=== PATIENT | male | born 1990 | race Two or more races ===

== ENCOUNTER 2017-06-01 12:56 | Emergency (ER) | payer OTHER ==
[2017-06-01] MEDS ORDERED: NS 0.9% 1000 ML* 1,000 ML IV ONE ×3 (13:42→17:38)
[2017-06-01] MEDS ORDERED: Ondansetron INJ* 2 MG/ML VIAL IV ONE (13:43)
[2017-06-01 15:38] LABS: ABS Basophils 0 10^3/ul (0-0.2); ABS Eosinophils 0 10^3/ul (0-0.6); ABS Lymphocytes 1.7 10^3/ul (1.0-4.8); ABS Monocytes 0.9 10^3/ul (0-0.8); ABS Nucleated RBC 0 10^3/ul; Eosinophil % 0.4 % (0-6); Hematocrit 49 % (42-52); Hemoglobin 15.7 g/dl (14.0-18.0); Lymphocyte % 15.6 % (25-47); Mean Corpuscular HGB Conc 33 g/dl (31-36); Mean Corpuscular Hemoglobin 26 pg (27-31); Mean Corpuscular Volume 79 fL (80-94); Mean Platelet Volume 10 um3 (7.4-10.4); Nucleated Red Blood Cells % 0.1; Platelet Count 214 10^3/ul (150-450); Red Blood Count 6.14 10^6/ul (4.0-5.4); Red Cell Distribution Width 15 % (10.5-15); White Blood Count 10.6 10^3/ul (3.5-10.8)
[2017-06-01 15:46] LABS: EGFR Non-African American 92.8 (>60)
[2017-06-01] MEDS ORDERED: Insulin REGULAR(*) 1 UNITS UNIT ONE (17:16)
[2017-06-01] MEDS ORDERED: Insulin REGULAR(*) 1 UNITS UNIT SUBCUT ONE (17:22)
[2017-06-01] MEDS ORDERED: Insulin GLARGINE(*) 1 UNITS UNIT ONE (18:57)
[2017-06-01] MEDS ORDERED: Insulin GLARGINE(*) 1 UNITS UNIT SUBCUT ONE (19:31)
[2017-06-01 19:48] VITALS: BP 162/80
--- NOTE | 2017-06-10 19:44 | ED ---
Loyd Salvador Stephanie, scribed for Marlon Araiza MD on 06/01/17 at 1345 . HPI Diabetic - HPI Summary HPI Summary: The pt is a 26 y/o M presenting to the ED with c/o N/V that began about 1 week ago. Symptoms include heartburn, increased urination, SOB and dry mouth. The pt denies cough. The pt was recently diagnosed with diabetes 5 days ago and is here for evaluation of hyperglycemia. BG was in 450s. The pt received 12 units of insulin today at 11:00. - History Of Current Complaint Chief Complaint: EDDiabeticProb Time Seen by Provider: 06/01/17 13:41 Hx Obtained From: Patient Onset/Duration: Gradual Onset, Lasting Days - 5, Still Present Timing: Constant Severity Currently: Mild Aggravating: Medication Change, Recent Illness - diabetes and HTN dx Associated Signs & Symptoms: Nausea, Shortness of Breath, Vomiting - Allergies/Home Medications Allergies/Adverse Reactions: Allergies Allergy/AdvReac Type Severity Reaction Status Date / Time No Known Allergies Allergy Verified 06/01/17 14:09 PMH/Surg Hx/FS Hx/Imm Hx Endocrine/Hematology History: Reports: Hx Diabetes Cardiovascular History: Reports: Hx Hypertension - Surgical History Surgery Procedure, Year, and Place: NONE Infectious Disease History: No Infectious Disease History: Denies: Traveled Outside the [place] in Last 30 Days - Family History Known Family History: Positive: Cardiac Disease - Social History Occupation: Unemployed Lives: [facility] Hx Substance Use: No Substance Use Type: Reports: None Hx Tobacco Use: No Review of Systems Positive: Other - dry mouth Positive: Other - heartburn Positive: Shortness Of Breath. Negative: Cough Positive: Vomiting, Nausea Positive: frequency - increased All Other Systems Reviewed And Are Negative: Yes Physical Exam - Summary Physical Exam Summary: Appearance: Well-appearing, morbidly obese Skin: Warm, Dry, No rash Eyes: Normal, PERRL, EOMI, sclera anicteric ENT: large tonsils, no thrush Neck: Supple, nontender Respiratory: Clear to auscultation Cardiovascular: S1, S2, no murmur, no rub, no gallop Abdomen: Soft, nontender, no organomegaly Bowel sounds: Present Musculoskeletal: Normal, Strength/ROM Intact, no edema, pulses symmetrical Neurological: Normal, A&Ox3, cranial nerves II-XII WNL, follows commands, gait not tested, sensation intact to pin and light touch Psychiatric: affect normal, behavior appropriate, dressed appropriately, judgment intact Triage Information Reviewed: Yes Vital Signs On Initial Exam: Initial Vitals Temp Pulse Resp BP Pulse Ox 96.6 F 102 20 195/118 100 06/01/17 12:58 06/01/17 12:58 06/01/17 12:58 06/01/17 12:58 06/01/17 12:58 Vital Signs Reviewed: Yes Diagnostics - Vital Signs Vital Signs Temp Pulse Resp BP Pulse Ox 06/01/17 12:58 96.6 F 102 20 195/118 100 - Laboratory Result Diagrams: 06/01/17 15:20 06/01/17 15:20 Lab Statement: Any lab studies that have been ordered have been reviewed, and results considered in the medical decision making process. - EKG 13:59 Cardiac Rate: NL EKG Rhythm: Sinus Rhythm - [address] Segment: Normal Ectopy: None EKG Interpretation: J point elevation in anterior leads, nml STTwave segments Diabetic Course/Dx - Course Course Of Treatment: Tolerated fluids. Improved sense of wellbeing. Decreased dyspnea. BG decreased below 200. - Diagnoses Provider Diagnoses: Diabetes mellitus out of control Discharge - Discharge Plan Condition: Stable Disposition: OTHER Discharge Disposition Comment: correctional facility Referrals: Sil CORDOVA,Senait Ontiveros [Primary Care Provider] - The documentation as recorded by the Loyd rivas Stephanie accurately reflects the service I personally performed and the decisions made by me, Marlon Araiza MD.
== END 2017-06-01 19:46 ==
LOC: ED 12:56
DX: E11.65 Type 2 diabetes mellitus with hyperglycemia (principal)
CPT/HCPCS: 36415; 80053; 82009; 85025; 93005; 96361; 96372; 96374; 99282; J2405